=== PATIENT | female | born 1970 | race Caucasian/White ===

== ENCOUNTER → 2020-10-06 | Outpatient (CLI) | payer BC | LOC: US 15:00 | DX: R13.10 Dysphagia, unspecified (principal); E04.1 Nontoxic single thyroid nodule | CPT/HCPCS: 76536 ==

== ENCOUNTER → 2020-10-21 | Outpatient (CLI) | payer BC | LOC: RAD 07:37 | DX: R13.10 Dysphagia, unspecified (principal); K22.2 Esophageal obstruction | CPT/HCPCS: 74220 ==

== ENCOUNTER → 2021-12-05 | Outpatient (CLI) | payer BC | LOC: KOH-I 11-14 13:30 | DX: E04.2 Nontoxic multinodular goiter (principal) | CPT/HCPCS: 76536 ==